=== PATIENT | male | born 1975 | race Caucasian/White ===

== ENCOUNTER 2021-05-06 00:53 | Emergency (ER) | payer SELFPAY ==
[2021-05-06] VITALS (20 sets, daily range): BP systolic 103–153; BP diastolic 62–88; PULSE 89–100; RESP 17–25; TEMP 34.9–36.1; O2SAT 99–100; BMI 27.1
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
[2021-05-06 01:00] LABS: ABG HCO3 15.8 mmhg (22.0-26.0); ABG Oxygen Saturation 98 % (90-100); ABG PCO2 30.1 mmhg (35.0-45.0); ABG PH 7.34 mmol/L (7.35-7.45); ABG PO2 160.5 mmhg (80-100); ABG TCO2 16.7 mmhg (23-27)
[2021-05-06 01:01] LABS: Allen's Test ACCEPTABLE; Oxygen 100 NRB %; Source Right Radial
[2021-05-06 01:13] LABS: Hematocrit 34.1 % (42.0-52.0); Hemoglobin 11.4 g/dL (14.1-18.0); Mean Corpuscular HGB Conc 33.3 g/dL (31.8-35.4); Mean Corpuscular Hemoglobin 33.6 pg (27.0-31.2); Red Blood Count 3.38 M/mm3 (4.60-6.20); White Blood Count 6.8 K/mm3 (4.8-10.8)
[2021-05-06 01:14] LABS: Basophils % 0.5 % (0.1-2.0); Eosinophils # 0.1 K/mm3 (0.0-0.4); Eosinophils % 2.1 % (0.1-12.0); Lymphocytes # 2.3 K/mm3 (0.7-4.5); Lymphocytes % 33.6 % (10-50); Mean Platelet Volume 7.9 fl (7.4-10.4); Monocytes # 0.3 K/mm3 (0.1-1.0); Monocytes % 3.7 % (1.7-9.3); Neutrophils % 58.1 % (37.0-80.0); Platelet Count 311 K/mm3 (142-424); Red Cell Distribution Width 13.1 % (11.5-17.5)
[2021-05-06 01:25] LABS: Anion Gap 12.2 mEq/L (5-15); Blood Urea Nitrogen 12 mg/dl (9-20); Calcium 7.9 mg/dl (8.4-10.2); Carbon Dioxide 20 mmol/L (22.0-30.0); Chloride 111 mmol/L (98-107); Creatinine Clearance Estimated 110 mL/min (50-200); Estimated Glomerular Filt Rate 73 ml/min (>60); GFR (African American) 88 ML/MIN (>60); Glucose 186 mg/dl (74-100); Potassium 3.2 mmoL/L (3.5-5.1); Sodium 140 mmol/L (136-145)
--- NOTE | 2021-05-06 01:39 | PC.NURSE ---
Addendum entered by Layla Shultz RN 05/06/21 02:53: WRONG PATIENT. Original Note: Serina from access center called and they gave bed assignment. [facility] [address]. Call report to [phone].
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
--- NOTE | 2021-05-06 04:33 | PC.NURSE ---
0200: 4TH UNIT OF BLOOD STARTED PER Suha DOWNS, RN DURING EMS TRANSPORT. BLOOD VERIFIED PER MYSELF AND Suha DOWNS, RN [facility]. 4TH UNIT OF BLOOD COMPLETED AT 0230. UNABLE TO DOCUMENT A 1 HOUR POST BLOOD TRANSFUSION VITAL SIGN DUE TO PATIENT BEING TRANSFERRED TO ED.
--- NOTE | 2021-05-06 04:48 | PC.NURSE ---
UNABLE TO DOCUMENT 1ST AND 2ND UNIT OF BLOOD ON TAR RELATED TO LAB RELEASING BLOOD AT 0115. UNABLE TO START BLOOD PRIOR TO RELEASE TIME AT 0115. [facility] BROUGHT EMERGENT BLOOD TO ED AT 0050. 0055: START TIME FOR 1ST UNIT BLOOD. UNIT #: [id number] BP:110/80 HR:100 TEMP:97.0 AX RR:18 SPO2:100% 0100: 5 MIN BP:136/72 HR:100 TEMP:97.0 AX RR:20 SPO2:100% 0104: COMPLETE BP:124/78 HR:96 TEMP:97.0 AX RR:17 SPO2:100% 0104: START TIME FOR 2ND UNIT BLOOD. UNIT #: [id number] BP:124/78 HR:96 TEMP:97.0 AX RR:17 SPO2:100% 0109:5 MIN BP:114/72 HR:95 TEMP:97.0 AX RR:18 SPO2:99% 0114: 10MIN BP:116/72 HR:97 TEMP:96.0 AX RR:18 SPO2:100% 0119: COMPLETION BP:121/79 HR:95 TEMP:96.1 AX RR:19 SPO2:100% 3RD AND 4TH UNIT CHARTED ON SEP.
== END 2021-05-06 01:45 | disposition short-term general hospital (02) ==
PROVIDERS: Emergency Provider Emergency Medicine
DX: S21.131A Puncture wound without foreign body of right front wall of thorax without penetration into thoracic cavity, initial encounter (principal); W34.00XA Accidental discharge from unspecified firearms or gun, initial encounter; I95.9 Hypotension, unspecified; F17.210 Nicotine dependence, cigarettes, uncomplicated
CPT/HCPCS: 71045; 80048; 82803; 85025; 86850; 96365; 96375; 96376; 99285; J2405; P9016